=== PATIENT | female | born 1965 | race African-American/Black ===

== ENCOUNTER 2019-06-03 11:24 | Emergency (ER) | payer MEDICAID, OTHER ==
[2019-06-03 12:32] VITALS: BP 168/98
--- NOTE | 2019-06-03 12:45 | UC ---
Knee Pain HPI - HPI Summary HPI Summary: left knee pain x 4 months pain is dull, 6 out of 10 , no radiation + swelling, pain is worse with weight bearing, better with rest and elevation cannot recall any injury - History of Current Complaint Chief Complaint: UCLowerExtremity Stated Complaint: L KNEE SWELLING Time Seen by Provider: 06/03/19 12:34 Hx Obtained From: Patient ?: No Onset/Duration: Gradual Onset, Lasting Weeks - 16, Still Present Severity Initially: Moderate Severity Currently: Moderate Pain Intensity: 10 Character: Dull, Aching Aggravating Factor(s): Movement, Weight Bearing, Prolonged Standing, Stairs Alleviating Factor(s): Rest, Position Associated Signs And Symptoms: Positive: Swelling. Negative: Redness, Bruising , Fever, Weakness, Numbness, Tingling Able to Bear Weight: Yes - Allergies/Home Medications Allergies/Adverse Reactions: Allergies Allergy/AdvReac Type Severity Reaction Status Date / Time No Known Allergies Allergy Verified 06/03/19 12:26 Home Medications: Home Medications Acetaminophen [Acetaminophen Extra Strength] 1,000 mg PO Q6H PRN 06/03/19 [ History Confirmed 06/03/19] Ibuprofen TAB* [Advil TAB*] 800 mg PO Q8H PRN 06/03/19 [History Confirmed ] PMH/Surg Hx/FS Hx/Imm Hx Previously Healthy: Yes - Surgical History Surgical History: Yes Surgery Procedure, Year, and Place: Left Third Finger Fracture Repair, ~2014; Bilateral Benign Breast Tumors; Tonsillectomy, ~1972 - Family History Known Family History: Positive: Non-Contributory - Social History Alcohol Use: "about six a day" Substance Use Type: Marijuana Substance Use Comment - Amount & Last Used: Daily Smoking Status (MU): Light Every Day Tobacco Smoker Type: Cigarettes Amount Used/How Often: <1/2 PPD Length of Time of Smoking/Using Tobacco: Since Age 5 Have You Smoked in the Last Year: Yes Household Exposure Type: Cigarettes Review of Systems All Other Systems Reviewed And Are Negative: Yes Constitutional: Positive: Negative Skin: Positive: Negative Eyes: Positive: Negative Is Patient Immunocompromised?: No Physical Exam Triage Information Reviewed: Yes Appearance: Ill-Appearing, Pain Distress, Thin Vital Signs: Initial Vital Signs Temp 99.3 F 06/03/19 12:22 Pulse 104 06/03/19 12:22 Resp 18 06/03/19 12:22 BP 168/98 06/03/19 12:22 Pulse Ox 99 06/03/19 12:22 Vital Signs Reviewed: Yes Eye Exam: Normal Eyes: Positive: Conjunctiva Clear ENT Exam: Normal ENT: Positive: Normal ENT inspection, Hearing grossly normal, Pharynx normal Neck: Positive: Supple, Nontender, No Lymphadenopathy Respiratory: Positive: Chest non-tender, Lungs clear, Normal breath sounds Cardiovascular: Positive: RRR, No Murmur, Pulses Normal Musculoskeletal: Positive: Other: - right knee : + swelling, + effusion , diffuse tenderness, pain with flexion and extension , stable ligaments, gaurding with [facility] - Radiology No standard instances Radiology Interpretation Completed By: Radiologist Summary of Radiographic Findings: xray left knee: IMPRESSION: Small joint effusion with increased mixed sclerotic lytic area in the medial femoral condyle. The possibility of spontaneous osteonecrosis should BE considered. Knee Pain Course/Dx - Differential Dx/Diagnosis Provider Diagnosis: Left knee pain, Effusion, left knee Discharge ED - Sign-Out/Discharge Documenting (check all that apply): Patient Departure All imaging exams completed and their final reports reviewed: Yes - Discharge Plan Condition: Stable Disposition: HOME Patient Education Materials: Swollen Knee Joint (ED) Referrals: No Primary Care Phys,NOPCP [Primary Care Provider] - Bonifacio Laboy MD [Medical Doctor] - As Soon As Possible - Billing Disposition and Condition Condition: STABLE Disposition: Home
== END 2019-06-03 13:20 | disposition home or self-care (01) ==
LOC: UCCORT 11:24
DX: M25.562 Pain in left knee (principal); M25.462 Effusion, left knee; F17.210 Nicotine dependence, cigarettes, uncomplicated
CPT/HCPCS: 99201; G0463